=== PATIENT | male | born 1950 | race Caucasian/White ===

== ENCOUNTER 2016-07-21 11:30 | Outpatient (CLI) | payer SELFPAY ==
--- NOTE | 2016-07-21 12:22 | DIAGNOSTIC IMAGING REPORT ---
PROCEDURE: XR RIBS BILATERAL INDICATION: L SIDED RIB PX DUE TO FALL TECHNIQUE: Eight views. COMPARISON: None. FINDINGS: Irregular 4 x 2 cm calcification corresponding to the placement of the skin marker projecting over the left lower ribs suggestive of costochondral calcification. Minor cortical irregularity of the tip of the left tenth rib, but away from the skin marker, likely subacute fracture. IMPRESSION: 1. Calcification corresponding to the placement of the skin marker over the left lower ribs suggestive of costochondral calcification. Consider CT scan if symptoms persist.
== END 2016-07-21 23:00 ==
LOC: XR SRH 11:30
DX: R07.81 Pleurodynia (principal)